=== PATIENT | female | born 1965 | race Native Hawaiian/Other Pacific Islander ===

== ENCOUNTER 2017-05-28 07:36 | Outpatient (CLI) | payer BC | END 2017-05-28 22:53 | disposition home or self-care (01) | LOC: RESP 07:36 | DX: R06.02 Shortness of breath (principal) ==

== ENCOUNTER 2017-11-25 13:44 | Outpatient (CLI) | payer BC | END 2017-11-25 19:42 | disposition home or self-care (01) | LOC: MAMMO 13:44 | DX: Z12.31 Encounter for screening mammogram for malignant neoplasm of breast (principal) ==

== ENCOUNTER 2018-02-18 14:32 | Outpatient (CLI) | payer BC | END 2018-02-18 23:29 | disposition home or self-care (01) | LOC: MAMMO 14:32 | DX: R92.8 Other abnormal and inconclusive findings on diagnostic imaging of breast (principal) ==

== ENCOUNTER 2018-04-12 13:59 | Outpatient (CLI) | payer BC | END 2018-04-12 20:59 | disposition home or self-care (01) | LOC: RAD 13:59 | DX: M54.5 Low back pain (principal) ==

== ENCOUNTER 2019-02-25 09:46 | Outpatient (CLI) | payer BC | END 2019-02-25 19:40 | disposition home or self-care (01) | LOC: MAMMO 09:46 | DX: Z12.31 Encounter for screening mammogram for malignant neoplasm of breast (principal) ==

== ENCOUNTER → 2020-05-14 | Outpatient (CLI) | payer BC ==
[~2020-05-14] MED LIST: IBU800 MG PO; MOBIC15 MG PO
== END ==
LOC: INF 15:54
PROVIDERS: ATTEND Internal Medicine
DX: Z23 Encounter for immunization (principal)
CPT/HCPCS: 96372

== ENCOUNTER 2020-06-07 09:10 | Outpatient (CLI) | payer BC, OTHER | END 2020-06-07 23:59 | disposition home or self-care (01) | LOC: INF 09:10 | PROVIDERS: ATTEND Internal Medicine | DX: Z23 Encounter for immunization (principal) | CPT/HCPCS: 96372 ==

== ENCOUNTER 2020-07-03 05:08 | Emergency (ER) | payer BC ==
[~2020-07-03] VITALS: Ht 152.4 cm; Wt 88.9 kg
[2020-07-03 05:14] VITALS: TEMP 98.9
[2020-07-03] MEDS ORDERED: IBU800 MG PO (05:38)
[2020-07-03] MEDS ORDERED: MOBIC15 MG PO (05:40)
[2020-07-03 05:54] LABS: PLATELET COUNT 355 K/uL (152-353)
[2020-07-03 05:58] LABS: POTASSIUM 3.9 mmol/L (3.6-5.2)
[2020-07-03 09:00] VITALS: BP 111/67
== END 2020-07-03 09:45 | disposition short-term general hospital (02) ==
LOC: ED 05:08
PROVIDERS: Emergency Medicine Emergency Medical Services
DX: K57.20 Diverticulitis of large intestine with perforation and abscess without bleeding (principal)
CPT/HCPCS: 36415; 80048; 81000; 82150; 83690; 85027; 87040; 96360; 96361; 96365; 96366; 96375; 96376; 99284; J1956; J2270; J2405

== ENCOUNTER 2020-09-13 09:27 | Outpatient (CLI) | payer BC | END 2020-09-13 19:44 | disposition home or self-care (01) | LOC: MAMMO 09:27 | PROVIDERS: ATTEND Obstetrics & Gynecology | DX: Z12.31 Encounter for screening mammogram for malignant neoplasm of breast (principal) ==

== ENCOUNTER 2021-06-22 04:04 | Emergency (ER) | payer BC ==
[~2021-06-22] VITALS: Ht 152.4 cm; Wt 87.1 kg
[2021-06-22 05:14] LABS: POTASSIUM 4.1 mmol/L (3.6-5.2)
[2021-06-22 05:16] LABS: PLATELET COUNT 292 K/uL (152-353)
[2021-06-22 08:00] VITALS: BP 135/70; TEMP 98.2
== END 2021-06-22 08:00 | disposition home or self-care (01) ==
LOC: ED 04:04
PROVIDERS: Hospitalist
DX: K57.32 Diverticulitis of large intestine without perforation or abscess without bleeding (principal); R11.2 Nausea with vomiting, unspecified
CPT/HCPCS: 36415; 80053; 80320; 83690; 85027; 96360; 96365; 96366; 96375; 99284; J1170; J1885; J1956; J2405; Q9963

== ENCOUNTER 2021-08-19 09:54 | Outpatient (CLI) | payer BC | END 2021-08-19 19:00 | disposition home or self-care (01) | LOC: US 09:54 | PROVIDERS: ATTEND Registered Nurse | DX: M79.604 Pain in right leg (principal) ==

== ENCOUNTER 2022-06-16 08:56 | Outpatient (CLI) | payer BC | END 2022-06-16 18:59 | disposition home or self-care (01) | LOC: MAMMO 08:56 | PROVIDERS: ATTEND Obstetrics & Gynecology | DX: Z12.31 Encounter for screening mammogram for malignant neoplasm of breast (principal) ==